=== PATIENT | female | born 1945 | race African-American/Black ===

== ENCOUNTER 2018-05-29 17:52 | Inpatient (IN) ==
[2018-05-29] MEDS ORDERED: ONDANSETRON 4 MG/2 ML VIAL IV STA (18:17)
[2018-05-29] MEDS ORDERED: SODIUM CHLORIDE 0.9% 1,000 ML IV STA ×2 (18:17→20:37)
[2018-05-29] MEDS ORDERED: INSULIN REGULAR 100 UNIT/ML IV STA ×2 (18:18→19:41)
[2018-05-29 19:04] LABS: Basophils % 0.5 % (0.0-0.8); Eosinophils # 0.1 10*3/uL (0.0-0.87); Eosinophils % 1.4 % (0.00-10.9); Hematocrit 44.8 VOL% (35.7-47.0); Hemoglobin 14.1 GM/DL (12.0-16.0); Immature Granulocytes % 0.5 %; Immature Granulocytes Absolute 0.03 #; Lymphocytes # 1.1 10*3/uL (1.4-4.0); Lymphocytes % 16.9 % (21.3-54.2); Mean Corpuscular HGB Conc 31.5 GM/DL (32-36); Mean Corpuscular Hemoglobin 29 PG (27-34); Mean Corpuscular Volume 90.9 FL (87-102); Mean Platelet Volume 13.3 FL (9.6-12.0); Monocytes # 0.4 10*3/uL (0.11-0.8); Monocytes % 5.7 % (1.7-12.7); Platelet Count 233 T/CUMM (130-400); Red Blood Count 4.93 MC/CUMM (3.8-5.5); Red Cell Distribution Width 13.8 % (9.3-17.3); White Blood Count 6.6 T/CUMM (4-12)
[2018-05-29] MEDS ORDERED: hydrALAZINE 20 MG/1 ML VIAL IV STA (19:08)
[2018-05-29 19:22] LABS: Albumin 4.3 G/DL (3.4-5.0); Bilirubin,Total 1.1 MG/DL (0.2-1.0); Calcium 10.4 MG/DL (8.5-10.1); Osmolality,Calculated 285.4 MOS/KG (273-304); Potassium 4.6 MMOL/L (3.5-5.1); Total Protein 8.8 G/DL (6.4-8.3)
[2018-05-29] MEDS ORDERED: INSULIN REGULAR DRIP 100 ML IV PRN ×2 (19:41→21:18)
[2018-05-29] MEDS ORDERED: SODIUM CHLORIDE 0.9% 2,000 ML IV STA (19:42)
[2018-05-29] MEDS ORDERED: MORPHINE 4 MG/1 ML VIAL IV STA (19:48)
[2018-05-29] MEDS ORDERED: MAGNESIUM SULF RIDER 4 GM in PREMIX 1 EACH IV PRN (20:46)
[2018-05-29] MEDS ORDERED: SODIUM PHOSPHATE INJ 26.1 MMOL in SODIUM CHLORIDE 0.9% 250 ML IV PRN (20:46)
[2018-05-29] MEDS ORDERED: INSULIN REGULAR 100 UNIT/ML IV ONE (20:46)
[2018-05-29] MEDS ORDERED: SODIUM BICARB INJ 100 MEQ in STERILE WATER INJ 400 ML IV PRN (20:46)
[2018-05-29] MEDS ORDERED: DEXTROSE 50% 25 GM/50 ML SYRINGE IV PRN ×2 (20:46)
[2018-05-29] MEDS ORDERED: MAGNESIUM SULF RIDER 2 GM in PREMIX 1 EACH IV PRN (20:46)
[2018-05-29] MEDS ORDERED: SODIUM CHLORIDE 0.9% 1,000 ML IV ONE (20:46)
[2018-05-29 21:00] LABS: VBG Base Excess -16.9 MEQ/L (0-4); VBG HCO3 11.9 MEQ/L (24-28); VBG Oxygen Saturation 89.2 %; VBG PCO2 31.1 MMHG (41-51); VBG PH 7.162; VBG PO2 69.6 MMHG (17-40)
[2018-05-29] MEDS ORDERED: INSULIN REGULAR DRIP 100 ML IV SCH ×2 (21:00→21:30)
[2018-05-29] MEDS ORDERED: ALBUTEROL 2.5 MG/3 ML NEB RESP TX PRN (21:22)
[2018-05-29] MEDS ORDERED: ONDANSETRON 4 MG/2 ML VIAL IV PRN (21:22)
[2018-05-29] MEDS: ENOXAPARIN 40 MG/0.4 ML SYRINGE SUBCUT SCH (21:28)
[2018-05-29] MEDS ORDERED: PANTOPRAZOLE 40 MG VIAL IV SCH (21:30)
[2018-05-29 22:22] LABS: Calcium 8.9 MG/DL (8.5-10.1); Osmolality,Calculated 292.1 MOS/KG (273-304)
[2018-05-29 22:33] LABS: Basophils % 0.2 % (0.0-0.8); Eosinophils % 0.2 % (0.00-10.9); Hematocrit 37.3 VOL% (35.7-47.0); Hemoglobin 11.7 GM/DL (12.0-16.0); Immature Granulocytes % 0.4 %; Immature Granulocytes Absolute 0.03 #; Lymphocytes % 12.3 % (21.3-54.2); Mean Corpuscular HGB Conc 31.4 GM/DL (32-36); Mean Corpuscular Hemoglobin 28 PG (27-34); Mean Corpuscular Volume 90.5 FL (87-102); Mean Platelet Volume 13.3 FL (9.6-12.0); Monocytes # 0.6 10*3/uL (0.11-0.8); Monocytes % 7.2 % (1.7-12.7); Neutrophils # 6.7 10*3/uL (1.4-7.4); Neutrophils % 79.7 % (38.7-73.9); Platelet Count 194 T/CUMM (130-400); Red Blood Count 4.12 MC/CUMM (3.8-5.5); Red Cell Distribution Width 13.8 % (9.3-17.3); White Blood Count 8.4 T/CUMM (4-12)
[2018-05-29] MEDS: SODIUM CHLORIDE 0.9% 1,000 ML IV SCH (22:49)
[2018-05-29 23:30] LABS: Apearance,Urine CLOUDY (Clear); Bacteria,Urine Occasional /HPF (Few); Bilirubin,Urine Negative (Negative); Blood, Urine Moderate mg/dL (Negative); Glucose,Urine (UA) >=500 mg/dL (Negative); Ketones,Urine 80 mg/dL (Negative); Mucus,Urine Occasional /LPF (Occasional); Nitrite,Urine Negative (Negative); Protein,Urine 100 MG/DL; RBC,Urine 18 /HPF (0-4); Squamous Epithelial Cell,Urine Occasional /HPF (0-10); Urine Specific Gravity 1.015 (1.001-1.035); Urine Urobilinogen < 2.0 EU/DL (0.2-1.0); WBC,Urine 3 /HPF (0-6)
[2018-05-29 23:35] LABS: Urine Color Yellow (Yellow)
[2018-05-29 23:37] LABS: Hyaline Casts,Urine 1 /LPF (0-3)
[2018-05-30] MEDS: SODIUM CHLORIDE 0.9% 1,000 ML IV SCH (00:55)
[2018-05-30] MEDS: hydrALAZINE 20 MG/1 ML VIAL IV PRN ×2 (00:57→15:13)
[2018-05-30] MEDS ORDERED: SODIUM CHLORIDE 0.9% 1,000 ML IV SCH (01:46)
[2018-05-30 02:20] LABS: Calcium 8.4 MG/DL (8.5-10.1); Osmolality,Calculated 282.8 MOS/KG (273-304); Potassium 3.9 MMOL/L (3.5-5.1)
[2018-05-30] MEDS: POTASSIUM CHLORIDE RIDER 10 MEQ in PREMIX 1 EACH IV PRN ×2 (02:41→06:14)
[2018-05-30] MEDS ORDERED: DEXTROSE 5% NACL 0.9% 1,000 ML IV SCH (05:30)
[2018-05-30 05:40] LABS: Basophils % 0.2 % (0.0-0.8); Eosinophils % 0.5 % (0.00-10.9); Hematocrit 34.4 VOL% (35.7-47.0); Hemoglobin 10.9 GM/DL (12.0-16.0); Immature Granulocytes % 0.3 %; Immature Granulocytes Absolute 0.02 #; Lymphocytes # 1.5 10*3/uL (1.4-4.0); Mean Corpuscular HGB Conc 31.7 GM/DL (32-36); Mean Corpuscular Hemoglobin 28 PG (27-34); Mean Corpuscular Volume 89.4 FL (87-102); Monocytes # 0.6 10*3/uL (0.11-0.8); Monocytes % 9.6 % (1.7-12.7); Neutrophils # 3.9 10*3/uL (1.4-7.4); Neutrophils % 64.4 % (38.7-73.9); Platelet Count 111 T/CUMM (130-400); Red Blood Count 3.85 MC/CUMM (3.8-5.5); Red Cell Distribution Width 14.1 % (9.3-17.3)
[2018-05-30 06:11] LABS: Calcium 8.3 MG/DL (8.5-10.1); Osmolality,Calculated 280.7 MOS/KG (273-304); Potassium 3.6 MMOL/L (3.5-5.1)
[2018-05-30] MEDS ORDERED: INSULIN REGULAR 100 UNIT/ML IV ONE (07:06)
[2018-05-30] MEDS: SODIUM CHLORIDE 0.45% 1,000 ML IV SCH ×2 (08:01→16:36)
[2018-05-30] MEDS: ASPIRIN EC 81 MG TABLET PO SCH (08:34)
[2018-05-30] MEDS: CARVEDILOL 12.5 MG TABLET PO SCH ×2 (08:34→21:11)
[2018-05-30] MEDS: LEFLUNOMIDE 10 MG TABLET PO SCH (08:34)
[2018-05-30 09:11] LABS: Calcium 8.6 MG/DL (8.5-10.1); Osmolality,Calculated 284.4 MOS/KG (273-304); Potassium 4.1 MMOL/L (3.5-5.1)
[2018-05-30] MEDS ORDERED: DEXT 5% NACL 0.45% KCL 20 MEQ 20 MEQ/1,000 ML BAG IV SCH (09:30)
[2018-05-30] MEDS ORDERED: GLUCAGON 1 MG VIAL IM PRN (09:31)
[2018-05-30] MEDS ORDERED: DEXTROSE 50% 25 GM/50 ML SYRINGE IV PRN (09:31)
[2018-05-30] MEDS: INSULIN GLARGINE 100 UNIT/ML SUBCUT SCH ×2 (11:31→21:12)
[2018-05-30] MEDS: INSULIN REGULAR 100 UNIT/ML SUBCUT SCH ×4 (11:59→21:11)
[2018-05-30] MEDS: traMADol 50 MG TABLET PO PRN ×2 (12:45→21:22)
[2018-05-30] MEDS: GLIMEPIRIDE 2 MG TABLET PO SCH (13:05)
[2018-05-30] MEDS ORDERED: hydrALAZINE 20 MG/1 ML VIAL IV ONE (17:03)
[2018-05-30] MEDS: amLODIPine 5 MG TABLET PO SCH ×2 (17:10→21:11)
[2018-05-30 17:24] LABS: Calcium 8.1 MG/DL (8.5-10.1); Potassium 3.9 MMOL/L (3.5-5.1)
[2018-05-30] MEDS ORDERED: SODIUM CHLORIDE 0.9% 1,000 ML IV ONE (17:53)
[2018-05-30] MEDS ORDERED: INSULIN REGULAR 100 UNIT/ML ONE (18:33)
[2018-05-30] MEDS ORDERED: SIMVASTATIN 20 MG TABLET PO SCH ×2 (19:00→21:00)
[2018-05-30] MEDS: ENOXAPARIN 40 MG/0.4 ML SYRINGE SUBCUT SCH (21:11)
[2018-05-31] MEDS: SODIUM CHLORIDE 0.45% 1,000 ML IV SCH ×2 (01:41→13:15)
[2018-05-31] MEDS: INSULIN REGULAR 100 UNIT/ML SUBCUT SCH ×4 (01:42→12:02)
[2018-05-31 05:02] LABS: Basophils % 0.6 % (0.0-0.8); Eosinophils # 0.4 10*3/uL (0.0-0.87); Eosinophils % 6.7 % (0.00-10.9); Hematocrit 35.5 VOL% (35.7-47.0); Hemoglobin 11.6 GM/DL (12.0-16.0); Immature Granulocytes % 0.2 %; Immature Granulocytes Absolute 0.01 #; Lymphocytes # 1.8 10*3/uL (1.4-4.0); Lymphocytes % 34.9 % (21.3-54.2); Mean Corpuscular HGB Conc 32.7 GM/DL (32-36); Mean Corpuscular Hemoglobin 29 PG (27-34); Mean Corpuscular Volume 87.7 FL (87-102); Mean Platelet Volume 13.3 FL (9.6-12.0); Monocytes # 0.8 10*3/uL (0.11-0.8); Monocytes % 15.9 % (1.7-12.7); Neutrophils # 2.2 10*3/uL (1.4-7.4); Neutrophils % 41.7 % (38.7-73.9); Platelet Count 188 T/CUMM (130-400); Red Blood Count 4.05 MC/CUMM (3.8-5.5); Red Cell Distribution Width 14.2 % (9.3-17.3); White Blood Count 5.2 T/CUMM (4-12)
[2018-05-31 05:27] LABS: Calcium 8.3 MG/DL (8.5-10.1); Osmolality,Calculated 273.7 MOS/KG (273-304); Potassium 3.3 MMOL/L (3.5-5.1)
[2018-05-31 06:24] LABS: Eosinophils 6 % (0-10); Hypochromasia 1+; Lymphocytes 38 % (20-55); Platelet Estimate Adequate; Segmented Neutrophils 42 % (50-85); Total Cells Counted 100
[2018-05-31] MEDS: GLIMEPIRIDE 2 MG TABLET PO SCH (09:26)
[2018-05-31] MEDS: LEFLUNOMIDE 10 MG TABLET PO SCH (09:26)
[2018-05-31] MEDS: CARVEDILOL 12.5 MG TABLET PO SCH (09:26)
[2018-05-31] MEDS: ASPIRIN EC 81 MG TABLET PO SCH (09:26)
[2018-05-31] MEDS: INSULIN GLARGINE 100 UNIT/ML SUBCUT SCH (09:27)
[2018-05-31] MEDS: traMADol 50 MG TABLET PO PRN (11:15)
[2018-05-31 12:21] VITALS: BP 152/76
[2018-05-31] MEDS ORDERED: metFORMIN 500 MG TABLET PO SCH (17:00)
[2018-05-31] MEDS ORDERED: INSULIN GLARGINE 100 UNIT/ML SUBCUT SCH (21:00)
[2018-05-31] MEDS ORDERED: GABAPENTIN 600 MG TABLET PO SCH (21:00)
[2018-06-01] MEDS ORDERED: MELOXICAM 7.5 MG TABLET PO SCH (09:00)
[2018-06-12] MEDS ORDERED: Adalimumab [Humira Pen] 40 MG PO SCH (09:00)
== END 2018-05-31 14:00 | disposition home or self-care (01) | DRG 638 ==
LOC: EDUNIT# → EDBD → N.ED 17:52 → N.EDINP 21:22 → SUATTDRO 21:22 → N.CC 21:52 → N.4E 05-31 04:14
PROVIDERS: ADMIT Family Medicine; ATTEND Emergency Medicine

== ENCOUNTER 2018-09-29 13:27 | Observation (INO) ==
[2018-09-29] MEDS ORDERED: DEXTROSE 50% 25 GM/50 ML VIAL IV ONE (13:34)
[2018-09-29] MEDS ORDERED: DEXTROSE 50% 25 GM/50 ML VIAL IV STA ×2 (13:43→15:52)
[2018-09-29 14:17] LABS: Basophils % 0.2 % (0.0-0.8); Eosinophils # 0.2 10*3/uL (0.0-0.87); Eosinophils % 3.3 % (0.00-10.9); Hematocrit 34.3 VOL% (35.7-47.0); Hemoglobin 10.4 GM/DL (12.0-16.0); Immature Granulocytes % 0.3 %; Immature Granulocytes Absolute 0.02 #; Lymphocytes # 2.4 10*3/uL (1.4-4.0); Lymphocytes % 40.2 % (21.3-54.2); Mean Corpuscular HGB Conc 30.3 GM/DL (32-36); Mean Corpuscular Volume 93.2 FL (87-102); Mean Platelet Volume 11.9 FL (9.6-12.0); Monocytes % 11.4 % (1.7-12.7); Neutrophils % 44.6 % (38.7-73.9); Platelet Count 232 T/CUMM (130-400); Red Blood Count 3.68 MC/CUMM (3.8-5.5); White Blood Count 6.1 T/CUMM (4-12)
[2018-09-29 14:18] LABS: Calcium 9.3 MG/DL (8.5-10.1); Osmolality,Calculated 282.3 MOS/KG (273-304)
[2018-09-29] MEDS: DEXTROSE 5% NACL 0.45% 1,000 ML IV SCH (15:59)
[2018-09-29 16:02] LABS: Apearance,Urine Slightly Hazy (Clear); Bilirubin,Urine Negative (Negative); Blood, Urine Negative (Negative); Glucose,Urine (UA) 50 mg/dL (Negative); Hyaline Casts,Urine 1 /LPF (0-3); Ketones,Urine Negative (Negative); Mucus,Urine Occasional /LPF (Occasional); Nitrite,Urine Negative (Negative); Protein,Urine 30 MG/DL; RBC,Urine <1 /HPF (0-4); Squamous Epithelial Cell,Urine Occasional /HPF (0-10); Urine Color Yellow (Yellow); Urine Specific Gravity 1.016 (1.001-1.035); Urine Urobilinogen < 2.0 EU/DL (0.2-1.0); WBC,Urine 1 /HPF (0-6)
[2018-09-29] MEDS ORDERED: hydrALAZINE 20 MG/1 ML VIAL IV STA (16:03)
[2018-09-29] MEDS ORDERED: hydrALAZINE 20 MG/1 ML VIAL ONE (16:05)
[2018-09-29] MEDS ORDERED: ONDANSETRON 4 MG/2 ML VIAL IV PRN (16:43)
[2018-09-29] MEDS: NABUMETONE 750 MG TABLET PO PRN (17:30)
[2018-09-29] MEDS ORDERED: GLUCAGON 1 MG VIAL IM PRN (17:33)
[2018-09-29] MEDS: hydrALAZINE 20 MG/1 ML VIAL IV PRN (18:21)
[2018-09-29] MEDS: INSULIN LISPRO 100 UNIT/ML SUBCUT SCH (22:40)
[2018-09-29] MEDS: CARVEDILOL 12.5 MG TABLET PO SCH (22:42)
[2018-09-29] MEDS: ACETAMINOPHEN 325 MG TABLET PO PRN (22:42)
[2018-09-30] MEDS ORDERED: DEXTROSE 10% 250 ML IV ONE (04:41)
[2018-09-30] MEDS: hydrALAZINE 20 MG/1 ML VIAL IV PRN ×2 (04:58→22:27)
[2018-09-30] MEDS ORDERED: DEXTROSE 50% 25 GM/50 ML VIAL IV PRN (05:08)
[2018-09-30] MEDS ORDERED: DEXTROSE 10% 250 ML IV PRN (05:12)
[2018-09-30] MEDS: ACETAMINOPHEN 325 MG TABLET PO PRN (06:56)
[2018-09-30 07:06] LABS: Apearance,Urine CLOUDY (Clear); Bacteria,Urine Occasional /HPF (Few); Bilirubin,Urine Negative (Negative); Blood, Urine Negative (Negative); Glucose,Urine (UA) Negative (Negative); Ketones,Urine Negative (Negative); Mucus,Urine Occasional /LPF (Occasional); Nitrite,Urine Negative (Negative); Protein,Urine 30 MG/DL; Squamous Epithelial Cell,Urine Many /HPF (0-10); Urine Color Yellow (Yellow); Urine Specific Gravity 1.014 (1.001-1.035); Urine Urobilinogen < 2.0 EU/DL (0.2-1.0); WBC,Urine <1 /HPF (0-6)
[2018-09-30 07:54] LABS: Basophils % 0.2 % (0.0-0.8); Eosinophils # 0.1 10*3/uL (0.0-0.87); Eosinophils % 2.2 % (0.00-10.9); Hematocrit 34.6 VOL% (35.7-47.0); Hemoglobin 10.8 GM/DL (12.0-16.0); Immature Granulocytes % 0.2 %; Immature Granulocytes Absolute 0.01 #; Lymphocytes # 1.3 10*3/uL (1.4-4.0); Lymphocytes % 22.8 % (21.3-54.2); Mean Corpuscular HGB Conc 31.2 GM/DL (32-36); Mean Corpuscular Volume 92.5 FL (87-102); Monocytes % 9.7 % (1.7-12.7); Neutrophils % 64.9 % (38.7-73.9); Platelet Count 225 T/CUMM (130-400); Red Blood Count 3.74 MC/CUMM (3.8-5.5); White Blood Count 5.6 T/CUMM (4-12)
[2018-09-30] MEDS: INSULIN LISPRO 100 UNIT/ML SUBCUT SCH ×4 (08:29→22:16)
[2018-09-30 08:32] LABS: Calcium 8.7 MG/DL (8.5-10.1); Thyroid Stimulating Hormone 1.44 uIU/ml (0.358-3.74)
[2018-09-30] MEDS: LEFLUNOMIDE 10 MG TABLET PO SCH (10:02)
[2018-09-30] MEDS: PANTOPRAZOLE 40 MG TABLET PO SCH (10:02)
[2018-09-30] MEDS: ASPIRIN EC 81 MG TABLET PO SCH (10:02)
[2018-09-30] MEDS: sulfaSALAzine 500 MG TABLET PO SCH (10:02)
[2018-09-30] MEDS: CARVEDILOL 12.5 MG TABLET PO SCH ×2 (10:03→16:32)
[2018-09-30] MEDS: ENOXAPARIN 40 MG/0.4 ML SYRINGE SUBCUT SCH (10:03)
[2018-09-30] MEDS: ATORVASTATIN 20 MG TABLET PO SCH (10:03)
[2018-09-30] MEDS: NABUMETONE 750 MG TABLET PO PRN (12:14)
[2018-09-30] MEDS: DEXTROSE 5% NACL 0.45% 1,000 ML IV SCH (13:15)
[2018-09-30] MEDS: NABUMETONE 750MG PO PRN (22:26)
[2018-10-01 06:06] LABS: Basophils % 0.2 % (0.0-0.8); Eosinophils # 0.1 10*3/uL (0.0-0.87); Eosinophils % 2.1 % (0.00-10.9); Hematocrit 33.6 VOL% (35.7-47.0); Hemoglobin 10.6 GM/DL (12.0-16.0); Immature Granulocytes % 0.3 %; Immature Granulocytes Absolute 0.02 #; Lymphocytes # 1.4 10*3/uL (1.4-4.0); Lymphocytes % 23.4 % (21.3-54.2); Mean Corpuscular HGB Conc 31.5 GM/DL (32-36); Mean Corpuscular Volume 90.6 FL (87-102); Mean Platelet Volume 12.4 FL (9.6-12.0); Monocytes % 8.9 % (1.7-12.7); Neutrophils % 65.1 % (38.7-73.9); Platelet Count 227 T/CUMM (130-400); Red Blood Count 3.71 MC/CUMM (3.8-5.5); Red Cell Distribution Width 15.2 % (9.3-17.3); White Blood Count 6.1 T/CUMM (4-12)
[2018-10-01 06:24] LABS: Calcium 9.3 MG/DL (8.5-10.1)
[2018-10-01] MEDS: PANTOPRAZOLE 40 MG TABLET PO SCH (08:20)
[2018-10-01] MEDS: sulfaSALAzine 500 MG TABLET PO SCH (08:20)
[2018-10-01] MEDS: NABUMETONE 750MG PO PRN (08:20)
[2018-10-01] MEDS: ATORVASTATIN 20 MG TABLET PO SCH (08:20)
[2018-10-01] MEDS: CARVEDILOL 12.5 MG TABLET PO SCH (08:20)
[2018-10-01] MEDS: ASPIRIN EC 81 MG TABLET PO SCH (08:21)
[2018-10-01] MEDS: LEFLUNOMIDE 10 MG TABLET PO SCH (08:21)
[2018-10-01] MEDS: INSULIN LISPRO 100 UNIT/ML SUBCUT SCH ×2 (08:21→11:47)
[2018-10-01] MEDS: ENOXAPARIN 40 MG/0.4 ML SYRINGE SUBCUT SCH (08:21)
[2018-10-01] MEDS ORDERED: INSULIN GLARGINE 100 UNIT/ML SUBCUT SCH (09:00)
[2018-10-01 12:13] VITALS: BP 143/87
== END 2018-10-01 13:45 | disposition home or self-care (01) ==
LOC: EDUNIT# → N.EDINP 13:27 → N.ED 13:27 → N.EDINP 18:59 → N.5E 19:08
PROVIDERS: ADMIT Internal Medicine; ATTEND Internal Medicine

== ENCOUNTER 2021-11-10 14:49 | Inpatient (IN) ==
[2021-11-10 15:46] LABS: Basophils % 0.1 % (0.0-0.8); Eosinophils # 0.1 10*3/uL (0.0-0.87); Eosinophils % 0.6 % (0.00-10.9); Hematocrit 36.2 VOL% (35.7-47.0); Hemoglobin 10.8 GM/DL (12.0-16.0); Immature Granulocytes % 0.3 %; Immature Granulocytes Absolute 0.03 #; Lymphocytes # 1.2 10*3/uL (1.4-4.0); Lymphocytes % 13.8 % (21.3-54.2); Mean Corpuscular HGB Conc 29.8 GM/DL (32-36); Mean Corpuscular Volume 88.7 FL (87-102); Mean Platelet Volume 10.2 FL (9.6-12.0); Monocytes # 0.6 10*3/uL (0.11-0.8); Monocytes % 6.7 % (1.7-12.7); Neutrophils % 78.5 % (38.7-73.9); Platelet Count 302 T/CUMM (130-400); Red Blood Count 4.08 MC/CUMM (3.8-5.5); Red Cell Distribution Width 18.5 % (9.3-17.3); White Blood Count 8.8 T/CUMM (4-12)
[2021-11-10 15:54] LABS: PT Patient Result 11.1 SECS (10.1-12.1); Partial Thromboplastin Time 32.4 SECS (23.7-32.9)
[2021-11-10 15:58] LABS: Alanine Aminotransferase 11 U/L (13-56); Albumin 3.1 G/DL (3.4-5.0); Alkaline Phosphatase 153 U/L (45-117); Aspartate Amino Transferase 9 U/L (0-37); Bilirubin,Total < 0.39 MG/DL (0.20-1.00); Blood Urea Nitrogen 20 MG/DL (7-18); Calcium 9.2 MG/DL (8.5-10.1); Carbon Dioxide 25 MMOL/L (21-32); Chloride 106 MMOL/L (98-107); Glucose 166 MG/DL (74-106); Osmolality,Calculated 283.5 MOS/KG (273-304); Sodium 139 MMOL/L (136-145); Total Protein 7.5 G/DL (6.4-8.2)
[2021-11-10 16:55] LABS: Bilirubin,Urine Negative (Negative); Blood, Urine Negative (Negative); Glucose,Urine (UA) 500 mg/dL (Negative); Ketones,Urine Negative (Negative); Nitrite,Urine Negative (Negative); Protein,Urine 30 mg/dL (Negative); Urine Appearance Clear (Clear); Urine Color Yellow (Yellow); Urine Urobilinogen 0.2 eU/dL (<2.0); Urine pH 5.5 (4.5-8.0)
[2021-11-10 16:59] LABS: Mucus,Urine Occasional /LPF (Occasional); RBC,Urine 1 /HPF (0-4); Squamous Epithelial Cell,Urine Occasional /HPF (0-10)
[2021-11-10 17:08] LABS: Barbiturates Screen,Urine Negative (Negative); Benzodiazepines Screen,Urine Negative (Negative); Cannabinoid Screen,Urine Negative (Negative); Opiate Screen,Urine Negative (Negative); Phencyclidine Screen,Urine Negative (Negative)
[2021-11-10] MEDS ORDERED: hydrALAZINE 20 MG/1 ML VIAL IV STA (17:44)
[2021-11-10] MEDS ORDERED: GABAPENTIN 300 MG CAPSULE PO PRN (18:15)
[2021-11-10] MEDS ORDERED: ONDANSETRON 4 MG/2 ML VIAL IV PRN (18:31)
[2021-11-10] MEDS ORDERED: GLUCAGON 1 MG VIAL IM PRN ×2 (18:31)
[2021-11-10] MEDS ORDERED: DEXTROSE 10% 250 ML BAG IV PRN (18:31)
[2021-11-10] MEDS ORDERED: LABETALOL 20 MG/4 ML SYRINGE IV PRN (18:31)
[2021-11-10] MEDS ORDERED: DEXTROSE 50% 25 GM/50 ML VIAL IV PRN (18:31)
[2021-11-10] MEDS ORDERED: ACETAMINOPHEN 325 MG TABLET PO PRN (18:31)
[2021-11-10] MEDS: hydrALAZINE 20 MG/1 ML VIAL IV PRN (20:27)
[2021-11-10] MEDS ORDERED: carvediloL 12.5 MG TABLET PO SCH (21:00)
[2021-11-10] MEDS: ENOXAPARIN 40 MG/0.4 ML SYRINGE SUBCUT SCH (22:51)
[2021-11-10] MEDS: INSULIN GLARGINE 100 UNIT/ML SUBCUT SCH (22:52)
[2021-11-10] MEDS: INSULIN LISPRO 100 UNIT/ML SUBCUT SCH (22:52)
[2021-11-10] MEDS: SODIUM CHLORIDE 0.9% 1,000 ML IV SCH (22:53)
[2021-11-11] MEDS: hydrALAZINE 20 MG/1 ML VIAL IV PRN (03:51)
[2021-11-11] MEDS: traMADol 50 MG TABLET PO PRN ×2 (03:53→12:35)
[2021-11-11] MEDS: SODIUM CHLORIDE 0.9% 1,000 ML IV SCH ×2 (04:02→12:30)
[2021-11-11 06:39] LABS: Basophils % 0.2 % (0.0-0.8); Eosinophils # 0.1 10*3/uL (0.0-0.87); Eosinophils % 1.4 % (0.00-10.9); Hematocrit 35.5 VOL% (35.7-47.0); Hemoglobin 10.8 GM/DL (12.0-16.0); Immature Granulocytes % 0.4 %; Immature Granulocytes Absolute 0.02 #; Lymphocytes # 1.4 10*3/uL (1.4-4.0); Lymphocytes % 24.7 % (21.3-54.2); Mean Corpuscular HGB Conc 30.4 GM/DL (32-36); Mean Corpuscular Volume 88.5 FL (87-102); Monocytes # 0.3 10*3/uL (0.11-0.8); Neutrophils % 67.3 % (38.7-73.9); Platelet Count 285 T/CUMM (130-400); Red Blood Count 4.01 MC/CUMM (3.8-5.5); Red Cell Distribution Width 18.6 % (9.3-17.3); White Blood Count 5.7 T/CUMM (4-12)
[2021-11-11] MEDS: sulfaSALAzine 500 MG TABLET PO SCH ×3 (07:17→20:32)
[2021-11-11 07:19] LABS: Calcium 9.1 MG/DL (8.5-10.1); Osmolality,Calculated 281.4 MOS/KG (273-304); Potassium 4.1 MMOL/L (3.5-5.1); Risk Ratio 4.5; Thyroid Stimulating Hormone 1.04 uIU/ml (0.358-3.74); VLDL Cholesterol 17.2 MG/DL
[2021-11-11] MEDS: ASPIRIN EC 81 MG TABLET PO SCH (08:39)
[2021-11-11] MEDS: amLODIPine 10 MG TABLET PO SCH (08:40)
[2021-11-11] MEDS: PANTOPRAZOLE 40 MG TABLET PO SCH (08:40)
[2021-11-11] MEDS: FOLIC ACID 1 MG TABLET PO SCH (08:40)
[2021-11-11] MEDS: carvediloL 12.5 MG TABLET PO SCH ×2 (08:40→16:01)
[2021-11-11] MEDS: CLOPIDOGREL 75 MG TABLET PO SCH (09:01)
[2021-11-11] MEDS: INSULIN LISPRO 100 UNIT/ML SUBCUT SCH ×4 (09:02→21:15)
[2021-11-11] MEDS: Empagliflozin [Jardiance] 25 mg tablet PO SCH (09:08)
[2021-11-11] MEDS ORDERED: LORazepam 1 MG TABLET PO ONE (10:33)
[2021-11-11] MEDS ORDERED: GLUCAGON 1 MG VIAL IM PRN (15:16)
[2021-11-11] MEDS ORDERED: DEXTROSE 50% 25 GM/50 ML VIAL IV PRN (15:16)
[2021-11-11] MEDS: ENOXAPARIN 40 MG/0.4 ML SYRINGE SUBCUT SCH (20:32)
[2021-11-11] MEDS: INSULIN GLARGINE 100 UNIT/ML SUBCUT SCH (20:33)
[2021-11-11] MEDS ORDERED: ROSUVASTATIN 20 MG TABLET PO SCH (21:00)
[2021-11-12 06:18] LABS: Basophils % 0.2 % (0.0-0.8); Eosinophils # 0.2 10*3/uL (0.0-0.87); Eosinophils % 3.6 % (0.00-10.9); Hematocrit 33.4 VOL% (35.7-47.0); Hemoglobin 10.2 GM/DL (12.0-16.0); Immature Granulocytes % 0.4 %; Immature Granulocytes Absolute 0.02 #; Lymphocytes # 1.8 10*3/uL (1.4-4.0); Lymphocytes % 31.6 % (21.3-54.2); Mean Corpuscular HGB Conc 30.5 GM/DL (32-36); Mean Corpuscular Volume 87.9 FL (87-102); Mean Platelet Volume 10.4 FL (9.6-12.0); Monocytes # 0.3 10*3/uL (0.11-0.8); Monocytes % 4.5 % (1.7-12.7); Neutrophils % 59.7 % (38.7-73.9); Platelet Count 331 T/CUMM (130-400); Red Cell Distribution Width 18.5 % (9.3-17.3); White Blood Count 5.5 T/CUMM (4-12)
[2021-11-12 06:40] LABS: Calcium 9.2 MG/DL (8.5-10.1); Potassium 3.9 MMOL/L (3.5-5.1)
[2021-11-12] MEDS: INSULIN LISPRO 100 UNIT/ML SUBCUT SCH ×2 (07:51→11:48)
[2021-11-12] MEDS: amLODIPine 10 MG TABLET PO SCH (08:45)
[2021-11-12] MEDS: carvediloL 12.5 MG TABLET PO SCH (08:45)
[2021-11-12] MEDS: CLOPIDOGREL 75 MG TABLET PO SCH (08:45)
[2021-11-12] MEDS: ASPIRIN EC 81 MG TABLET PO SCH (08:45)
[2021-11-12] MEDS: FOLIC ACID 1 MG TABLET PO SCH (08:45)
[2021-11-12] MEDS: sulfaSALAzine 500 MG TABLET PO SCH (08:45)
[2021-11-12] MEDS: PANTOPRAZOLE 40 MG TABLET PO SCH (08:46)
[2021-11-12] MEDS: Empagliflozin [Jardiance] 25 mg tablet PO SCH (08:51)
[2021-11-12] MEDS: traMADol 50 MG TABLET PO PRN (08:53)
[2021-11-12 11:23] VITALS: BP 186/72
[2021-11-12 11:35] LABS: % Iron Saturation 14.8 % (18-50)
[2021-11-12 13:34] LABS: Folate 14.03 NG/ML (5.38-24.0)
[2021-11-12] MEDS ORDERED: INSULIN GLARGINE 100 UNIT/ML SUBCUT SCH (21:00)
[2021-11-16] MEDS ORDERED: METHOTREXATE 2.5 MG TABLET PO SCH (09:00)
== END 2021-11-12 15:41 | disposition home health service (06) | DRG 66 ==
LOC: EDBD → EDUNIT# → N.ED 14:49 → N.EDINP 14:49 → SUATTDRO 18:31 → N.3E 20:50 → SUATTDRO 11-11 14:10
PROVIDERS: ADMIT Internal Medicine; ATTEND Internal Medicine